=== PATIENT | male | born 1960 | race Caucasian/White ===

== ENCOUNTER 2017-01-16 09:41 | Day surgery (SDC) | payer OTHER ==
[~2017-01-16] VITALS: Ht 177.8 cm; Wt 68.3 kg
[2017-01-16 10:31] VITALS: Ht 177.8 cm; Wt 68.3 kg
[2017-01-16] MEDS ORDERED: MULTIVITAMINS (10:34)
[2017-01-16] MEDS ORDERED: LIPITOR (10:34)
[2017-01-16 10:55] VITALS: BP 111/58; PULSE 65; RESP 15
[2017-01-16] MEDS ORDERED: MIDAZOLAM 1 MG/ML 2 ML INJ ONE ×2 (11:27→11:28)
[2017-01-16] MEDS ORDERED: FENTAnyl 50 MCG/ML VIAL ONE (11:27)
--- NOTE | 2017-01-16 11:28 | OPPN ---
Date/Time of Note Date/Time of Note DATE: 01/16/17 TIME: 11:26 Proc Note GI Procedure Date 01/16/17 Indication: screening/surveillance Pre-procedure Diagnosis screening colonoscopy Post-procedure Diagnosis hemorrhoids Procedure Performed: Colonoscopy Surgeon see signature line Client Manager none Anesthesia Type: moderate sedation Tourniquet Time none EBL none Transfusion required none Biopsy 1: none Grafts/Implants none Tubes/Drains none Complication(s) none Procedure Description colonoscopy showed mini extl hemorrhoids CHITO FLETCHER MD Jan 16, 2017 11:28
--- NOTE | 2017-01-17 05:20 | GILP ---
DATE OF PROCEDURE: 01/16/2017 NAME OF PROCEDURE: Colonoscopy. PREOPERATIVE DIAGNOSIS: Screening colonoscopy to rule out colon polyps. POSTOPERATIVE DIAGNOSES: Minimal external hemorrhoids. Rest of the colon appeared normal. DESCRIPTION OF PROCEDURE: After informed written consent was obtained, the patient was asked to lie on the left lateral side. The patient was given a total of 4 mg of Versed and 75 mcg of fentanyl a s intravenous anesthesia. When the patient became somnolent, the Olympus video colonoscope was introduced into the rectum and scope was advanced all the way to the cecum. Entire colon appeared perfectly normal. No polyps, no diverticulosis or any other abnormality detected. On the way out, retroflexion was performed, whic h appeared normal. Scope was withdrawn, minimal external hemorrhoids were noted and the procedure w as terminated. PLAN: Recommend repeat colonoscopy in 10 years. Dictated By: CHITO FLETCHER MD NC/NTS Conf#: [id number] DID#: [id number] CC: Joseline Ansari MD;*EndCC*
== END 2017-01-16 20:57 | disposition home or self-care (01) ==
LOC: GIL 09:41
PROVIDERS: ATTEND Internal Medicine Gastroenterology
DX: Z12.11 Encounter for screening for malignant neoplasm of colon (principal); K64.4 Residual hemorrhoidal skin tags
CPT/HCPCS: 45378; J2250; J3010; Z7610